=== PATIENT | female | born 1985 | race Caucasian/White ===

== ENCOUNTER 2019-11-12 07:09 | Emergency (ER) | payer OTHER ==
[~2019-11-12] VITALS: Ht 172.7 cm; Wt 74.8 kg
[~2019-11-12 07:09] MED LIST: TOBREX3.5 GM OP
[2019-11-12 07:45] VITALS: BP 124/81
== END 2019-11-12 07:45 | disposition home or self-care (01) ==
LOC: M.ERS 07:09
DX: B34.9 Viral infection, unspecified (principal); Z20.828 Contact with and (suspected) exposure to other viral communicable diseases